=== PATIENT | female | born 1980 | race African-American/Black ===

== ENCOUNTER 2018-01-10 06:45 | Emergency (ER) | payer OTHER ==
[~2018-01-10] VITALS: Ht 162.6 cm; Wt 127.0 kg
--- NOTE | 2018-01-10 07:09 | Emergency Room Report ---
History of Present Illness General Chief Complaint: Female Urogenital Problems Source: Patient Present Illness HPI Patient presents with 3 days of vaginal itching and swelling. She had unprotected sex recently. New sexual partner. She denies any dysuria. Her last period was 2 weeks ago and normal for her although her periods have been irregular. She denies any fevers or chills. There's no abdominal pain. No nausea vomiting or diarrhea. She's not taking any medication for this. She's never had any discharge like this in the past. Last LNMP was 2 weeks ago. Before this, her last period was in June. She' s been under a lot of stress. She's broken out in hives at least twice during this time. She denies any hives at this time. No headache, joint pain, URI sy. Allergies: Coded Allergies: No Known Allergies (Unverified , 01/10/18) Patient History Past Medical History: see triage record Social History: Denies: smoking Social History Narrative at home Now: No Reviewed Nursing Documentation: PMH: Agreed; PSxH: Agreed Nursing Documentation-PMH Past Medical History: No Stated History Review of Systems All Other Systems: negative except mentioned in HPI Physical Exam Vital Signs Date Time Temp Pulse Resp B/P (MAP) Pulse Ox O2 Delivery O2 Flow Rate FiO2 01/10/18 06:51 97.7 84 16 109/80 98 Room Air 97.7 Sp02 EP Interpretation: reviewed, normal General Appearance: well appearing, no apparent distress, GCS 15 Head: normocephalic Eyes: bilateral eye normal inspection ENT: moist mucus membranes Neck: supple Respiratory: lungs clear, normal breath sounds Cardiovascular #1: regular rate, rhythm Cardiovascular #2: 2+ radial (R) Gastrointestinal: normal inspection, normal bowel sounds, non tender, no mass, non-distended, overweight Genitourinary: bladder normal, ext genitalia/vag normal, os closed, urethra normal, other - discharge, no inflammation or lesions Musculoskeletal: back normal, gait/station normal, normal range of motion Neurologic: alert, oriented x3, grossly normal Psychiatric: mood/affect normal Skin: normal inspection, warm/dry Medical Decision Making Diagnostic Impression: Primary Impression: Trichomonal infection ER Course Patient presents with vaginal itching and swelling. Differential includes Bartholin's cyst, vaginitis, Trichomonas, Gardnerella, associated transmitted disease, herpes amongst others. We need to exclude UTI. Urinalysis and wet mount will be sent. Patient treated for possible STD exposure with Rocephin and Doxy. UA with pyuria. Wet mount with Trichomonas. Flagyl begun. Discussed with patient. Also stressed need for follow up with [facility]. Patient stable for outpatient observation and treatment. Laboratory Tests Test 01/10/18 06:55 Urine Color Pale yellow Urine Appearance Clear Urine pH 6 (4.5-8.0) Urine Specific Anna 1.010 (1.005-1.035) Urine Protein Negative (NEGATIVE) Urine Glucose (UA) Negative (NEGATIVE) Urine Ketones Negative (NEGATIVE) Urine Occult Blood Negative (NEGATIVE) Urine Nitrite Negative (NEGATIVE) Urine Bilirubin Negative (NEGATIVE) Urine Urobilinogen Normal MG/DL (0.0-1.0) Urine Leukocyte Esterase 3+ (NEGATIVE) H Urine RBC 0-2 /HPF (0 - 2) Urine WBC 5-10 /HPF (0 - 2) H Urine Squamous Epithelial Cells Occasional /LPF Urine Bacteria Occasional /HPF (NONE) Urine HCG, Qualitative Negative (NEGATIVE) Microbiology Date/Time Source Procedure Growth Status 01/10/18 07:11 Vaginal Wet Prep - Final Complete Last Vital Signs Date Time Temp Pulse Resp B/P (MAP) Pulse Ox O2 Delivery O2 Flow Rate FiO2 01/10/18 08:05 97.7 84 16 115/84 97 Room Air 97.7 Status: improved Disposition: HOME, SELF-CARE Condition: Improved Scripts Metronidazole* (FLAGYL*) 500 Mg Tablet 500 MG ORAL TID, #20 TAB Prov: Gonzalez Mendes M.D. 01/10/18 Doxycycline Monohydrate* (DOXYCYCLINE MONOHYDRATE*) 100 Mg Capsule 100 MG ORAL Q12H, #14 CAP 0 Refills Prov: Gonzalez Mendes M.D. 01/10/18 Gnozalez Mendes M.D. Jan 10, 2018 07:09
[2018-01-10 07:14] LABS: APPEARANCE,URINE CLEAR; BILIRUBIN, URINE NEGATIVE (NEGATIVE); COLOR,URINE PALE YELLOW; GLUCOSE, URINE (UA) NEGATIVE (NEGATIVE); KETONES,URINE NEGATIVE (NEGATIVE); LEUKOCYTE ESTERASE ,URINE 3+ (NEGATIVE); NITRITE,URINE NEGATIVE (NEGATIVE); PH,URINE 6 (4.5-8.0); PROTEIN,URINE NEGATIVE (NEGATIVE); UROBILINOGEN,URINE NORMAL MG/DL (0.0-1.0)
[2018-01-10] MEDS ORDERED: Lidocaine 1% MPF 10mg/ml 5ml INJ ONE (07:30)
[2018-01-10] MEDS ORDERED: DOXYCYCLINE MO100 MG ORAL (07:53)
[2018-01-10] MEDS ORDERED: METRONIDAZOLE500 MG ORAL (07:53)
[2018-01-10] MEDS ORDERED: metroNIDAZOLE 500mg tab ORAL ONE (08:00)
[2018-01-10 08:05] VITALS: BP 115/84
== END 2018-01-10 08:08 | disposition home or self-care (01) ==
LOC: EMR 07:16
DX: A59.01 Trichomonal vulvovaginitis (principal)
CPT/HCPCS: 81003; 81025; 87210; 87491; 87590; 96372; 99283; J0696

== ENCOUNTER 2018-02-03 20:52 | Emergency (ER) | payer OTHER ==
[~2018-02-03] VITALS: Ht 162.6 cm; Wt 127.0 kg
[~2018-02-03 20:52] MED LIST: DOXYCYCLINE MO100 MG ORAL; METRONIDAZOLE500 MG ORAL
[2018-02-03] MEDS ORDERED: CYCLOBENZAPRINE10 MG ORAL (23:08)
[2018-02-03] MEDS ORDERED: Cyclobenzaprine 10mg Tab ORAL ONE (23:15)
[2018-02-03 23:20] VITALS: BP 152/78
[2018-02-03 23:30] VITALS: BP 152/78
--- NOTE | 2018-02-04 04:34 | Emergency Room Report ---
History of Present Illness General Chief Complaint: Back Pain-No Injury Source: Patient Present Illness Allergies: Coded Allergies: No Known Allergies (Unverified , 01/10/18) Patient History Last Menstrual Period: Dec Nursing Documentation-[facility] Hx Asthma: Yes Physical Exam Vital Signs Date Time Temp Pulse Resp B/P (MAP) Pulse Ox O2 Delivery O2 Flow Rate FiO2 02/03/18 21:50 97.4 80 16 152/78 98 97.3 Medical Decision Making Diagnostic Impression: Primary Impression: Chronic back pain Additional Impression: Nail avulsion, finger Last Vital Signs Date Time Temp Pulse Resp B/P (MAP) Pulse Ox O2 Delivery O2 Flow Rate FiO2 02/03/18 23:24 97.4 02/03/18 21:50 80 16 152/78 98 Status: improved Disposition: HOME, SELF-CARE Condition: Stable Scripts Cyclobenzaprine Hcl* (FLEXERIL*) 10 Mg Tablet 10 MG ORAL TID PRN for Muscle Spasm, #20 TAB Prov: Herman Ireland MD 02/03/18 Referrals: [facility],REFERRING (PCP) Patient Instructions: Herman Hendricks MD Feb 04, 2018 04:34
== END 2018-02-03 23:30 | disposition home or self-care (01) ==
LOC: EMR 22:15
DX: M54.9 Dorsalgia, unspecified (principal); S61.309A Unspecified open wound of unspecified finger with damage to nail, initial encounter; X58.XXXA Exposure to other specified factors, initial encounter; Y93.9 Activity, unspecified; Y92.9 Unspecified place or not applicable
CPT/HCPCS: 99282